=== PATIENT | male | born 1955 | race Caucasian/White ===

== ENCOUNTER 2017-07-16 19:39 | Inpatient (IN) | payer MEDICAID, OTHER ==
[~2017-07-16] VITALS: Ht 175.3 cm; Wt 81.2 kg
[2017-07-16] MEDS ORDERED: SODIUM CHLORIDE 0.9% 1,000 ML IVB ONE (20:12)
[2017-07-16] MEDS ORDERED: LORazepam 2MG/ML-1ML VIAL ONE (21:04)
[2017-07-16] MEDS ORDERED: LORazepam 2MG/ML-1ML VIAL IV ONE (21:15)
[2017-07-16 21:21] LABS: INR 1.11 (0.9-1.15); Prothrombin Time 12.1 sec (9.37-12.3)
[2017-07-16 21:23] LABS: Albumin 3.3 g/dL (3.4-5.0); BUN/Creatinine Ratio 21.4; Magnesium 2.1 mg/dL (1.6-2.6)
[2017-07-16 21:25] LABS: Bilirubin, Total 0.9 mg/dL (0.2-1.0); Lactic Acid w/Reflex 2.3 mmol/L (0.4-2.0); Total Protein 7.6 g/dL (6.4-8.2)
[2017-07-16] MEDS ORDERED: SODIUM CHLORIDE 0.9% 500 ML IV ONE (21:45)
[2017-07-16] MEDS ORDERED: SODIUM CHLORIDE 0.9% 1,000 ML IV ONE (21:45)
[2017-07-16 21:53] LABS: Urine Bacteria NONE SEEN /hpf (None Seen); Urine Blood TRACE /uL (Negative); Urine WBC 2 /hpf (0 - 3)
[2017-07-16 22:07] LABS: Basophils # (auto) 0 uL; Eosinophils # (auto) 0 uL; Monocytes # (auto) 0.9 uL; Neutrophils # (auto) 7.2 uL; Nucleated Red Blood Cells % 0.1 %; Red Blood Cells 2.72 10^6/uL (4.5-5.90); White Blood Cell 8.5 10^3/uL (4.4-10.8)
[2017-07-16 22:08] LABS: Basophils % (auto) 0.3 % (0.0-2.0); Hematocrit 26.8 % (41.0-53.0); Lymphocytes # (auto) 0.4 uL; Lymphocytes % (auto) 5.2 % (10.0-50.0); Mean Corpuscular Hemoglobin 33.1 pg (28.0-32.0); Mean Corpuscular Hgb Conc. 33.6 g/dL (32.0-36.0); Mean Corpuscular Volume 98.5 fL (80.0-100.0); Neutrophils % (auto) 84.5 % (37.0-80.0)
[2017-07-16 22:09] LABS: Red Cell Distribution Width 28.9 % (11.8-14.3)
[2017-07-16 22:11] LABS: Platelet Count (auto) 32 10^3/uL (140-450)
[2017-07-16] MEDS ORDERED: TEMAZEPAM 15 MG CAP PO PRN (22:30)
[2017-07-16] MEDS ORDERED: MORPHINE SULFATE 4 MG/ML SYR/VIAL IV PRN (22:30)
[2017-07-16] MEDS ORDERED: ACETAMINOPHEN 500 MG TAB PO PRN (22:30)
[2017-07-16] MEDS ORDERED: ONDANSETRON HCL 4 MG/2 ML VIAL IV PRN (22:30)
[2017-07-16] MEDS ORDERED: HYDROcodone-ACET 5/325MG TAB PO PRN (22:30)
[2017-07-16] MEDS ORDERED: LACTULOSE 20Gm/30ML SOLN PR ONE (23:00)
[2017-07-16] MEDS ORDERED: LACTULOSE 20Gm/30ML SOLN ONE (23:35)
[2017-07-17 00:55] VITALS: BP 121/79
[2017-07-17 05:00] VITALS: BP 132/63
[2017-07-17 05:48] LABS: Basophils # (auto) 0 uL; Eosinophils # (auto) 0 uL; Hemoglobin 9.6 g/dL (13.5-17.5); Mean Corpuscular Hgb Conc. 33.3 g/dL (32.0-36.0); Nucleated Red Blood Cells % 0.1 %; Platelet Count (auto) 25 10^3/uL (140-450)
[2017-07-17 05:52] LABS: Basophils % (auto) 0.1 % (0.0-2.0); Eosinophils % (auto) 0.1 % (0.0-7.0); Hematocrit 28.8 % (41.0-53.0); Lymphocytes # (auto) 0.6 uL; Lymphocytes % (auto) 8.4 % (10.0-50.0); Mean Corpuscular Hemoglobin 32.6 pg (28.0-32.0); Mean Corpuscular Volume 97.8 fL (80.0-100.0); Neutrophils # (auto) 5.3 uL; Neutrophils % (auto) 77.4 % (37.0-80.0); Red Blood Cells 2.94 10^6/uL (4.5-5.90); White Blood Cell 6.8 10^3/uL (4.4-10.8)
[2017-07-17 05:59] LABS: Red Cell Distribution Width 28.6 % (11.8-14.3)
[2017-07-17 06:13] LABS: Albumin 2.8 g/dL (3.4-5.0); Calcium 7.7 mg/dL (8.5-10.1); Potassium 4.5 mmol/L (3.5-5.1); Total Protein 5.8 g/dL (6.4-8.2)
[2017-07-17] MEDS ORDERED: HALOPERIDOL LACTATE 5 MG/ML INJ VIAL IM ONE (08:45)
[2017-07-17 09:00] VITALS: BP 148/85
[2017-07-17] MEDS ORDERED: HALOPERIDOL LACTATE 5 MG/ML INJ VIAL IM PRN (09:45)
[2017-07-17] MEDS ORDERED: LORazepam 2MG/ML-1ML VIAL IV PRN (11:00)
[2017-07-17] MEDS: D5W/SOD CHL 0.45%/KCL 20MEQ 1,000 ML IV SCH (11:47)
[2017-07-17 12:11] LABS: Albumin 2.5 g/dL (3.4-5.0); BUN/Creatinine Ratio 25.5; Bilirubin, Total 1.1 mg/dL (0.2-1.0); Calcium 7.9 mg/dL (8.5-10.1); Potassium 4.6 mmol/L (3.5-5.1); Total Protein 5.5 g/dL (6.4-8.2)
[2017-07-17 13:00] VITALS: BP 128/92
[2017-07-17 17:00] VITALS: BP 131/77
[2017-07-17] MEDS: LACTULOSE 20Gm/30ML SOLN PO SCH (18:21)
[2017-07-17 21:43] VITALS: BP 129/83
[2017-07-17] MEDS: RIFAXIMIN 550 MG TAB PO SCH (22:00)
[2017-07-18 04:45] VITALS: BP 147/98
[2017-07-18] MEDS: LACTULOSE 20Gm/30ML SOLN PO SCH ×4 (06:00→18:00)
[2017-07-18] MEDS: HYDROmorphone HCL 2 MG TAB PO PRN ×2 (06:08→15:53)
[2017-07-18] MEDS: D5W/SOD CHL 0.45%/KCL 20MEQ 1,000 ML IV SCH (06:15)
[2017-07-18 08:58] LABS: Basophils # (auto) 0 uL; Basophils % (auto) 0.1 % (0.0-2.0); Eosinophils # (auto) 0 uL; Hemoglobin 9.7 g/dL (13.5-17.5); Lymphocytes # (auto) 0.4 uL; Neutrophils # (auto) 3.4 uL
[2017-07-18 09:00] VITALS: BP 134/71
[2017-07-18 09:00] LABS: Lymphocytes % (auto) 9.9 % (10.0-50.0); Mean Corpuscular Hemoglobin 34.3 pg (28.0-32.0); Mean Corpuscular Hgb Conc. 34.8 g/dL (32.0-36.0); Mean Corpuscular Volume 98.7 fL (80.0-100.0); Monocytes # (auto) 0.7 uL; Monocytes % (auto) 16.1 % (0.0-12.0); Neutrophils % (auto) 73.9 % (37.0-80.0); Platelet Count (auto) 39 10^3/uL (140-450); Red Blood Cells 2.83 10^6/uL (4.5-5.90); White Blood Cell 4.5 10^3/uL (4.4-10.8)
[2017-07-18] MEDS: RIFAXIMIN 550 MG TAB PO SCH ×2 (10:36→21:36)
[2017-07-18 13:00] VITALS: BP 137/90
[2017-07-18 22:00] VITALS: BP 136/86
[2017-07-19] MEDS: LACTULOSE 20Gm/30ML SOLN PO SCH ×3 (00:01→12:10)
[2017-07-19] MEDS: D5W/SOD CHL 0.45%/KCL 20MEQ 1,000 ML IV SCH (01:56)
[2017-07-19] MEDS: HYDROmorphone HCL 2 MG TAB PO PRN ×2 (02:50→11:10)
[2017-07-19 05:00] VITALS: BP 141/82
[2017-07-19 06:33] LABS: Platelet Count (auto) 41 10^3/uL (140-450)
[2017-07-19 06:37] LABS: Hematocrit 29.2 % (41.0-53.0); Hemoglobin 9.8 g/dL (13.5-17.5); Mean Corpuscular Hemoglobin 33.8 pg (28.0-32.0); Mean Corpuscular Hgb Conc. 33.7 g/dL (32.0-36.0); Mean Corpuscular Volume 100.2 fL (80.0-100.0); Red Blood Cells 2.92 10^6/uL (4.5-5.90); White Blood Cell 3.5 10^3/uL (4.4-10.8)
[2017-07-19 06:46] LABS: Red Cell Distribution Width 29.8 % (11.8-14.3)
[2017-07-19 06:49] LABS: Basophils % (manual) 0 (0.0-2.0); Blast Cells 0; Eosinophils % (manual) 0 (0-7); Metamyelocytes % 0; Myelocytes % 0; Promyelocytes % 0; Reactive Lymphocytes 0
[2017-07-19 06:53] LABS: Albumin 2.5 g/dL (3.4-5.0); Potassium 4.6 mmol/L (3.5-5.1)
[2017-07-19 07:08] LABS: Bilirubin, Total 1.3 mg/dL (0.2-1.0); Total Protein 5.8 g/dL (6.4-8.2)
[2017-07-19 08:30] LABS: Band Neutrophils % (manual) 1; Lymphocytes % (manual) 22 (10.0-50.0); Monocytes % (manual) 13 (0-12)
[2017-07-19 08:51] VITALS: BP 143/89
[2017-07-19] MEDS: RIFAXIMIN 550 MG TAB PO SCH (12:10)
[2017-07-19 12:14] VITALS: BP 142/92
[2017-07-19 14:48] VITALS: BP 142/92
== END 2017-07-19 18:35 | disposition home or self-care (01) | DRG 279 ==
LOC: ER 19:39 → EDBD 19:39 → TELE-CENTR 19:40
PROVIDERS: ADMIT Nurse Practitioner Family; ATTEND Internal Medicine
DX: K72.90 Hepatic failure, unspecified without coma (principal); E43 Unspecified severe protein-calorie malnutrition; J90 Pleural effusion, not elsewhere classified; R18.8 Other ascites; D69.6 Thrombocytopenia, unspecified; C22.9 Malignant neoplasm of liver, not specified as primary or secondary; E87.1 Hypo-osmolality and hyponatremia; N18.3 Chronic kidney disease, stage 3 (moderate); N19 Unspecified kidney failure; R16.1 Splenomegaly, not elsewhere classified; K74.60 Unspecified cirrhosis of liver; I10 Essential (primary) hypertension; D64.9 Anemia, unspecified; K21.9 Gastro-esophageal reflux disease without esophagitis; J98.11 Atelectasis; Z85.05 Personal history of malignant neoplasm of liver; Z85.028 Personal history of other malignant neoplasm of stomach; Z68.26 Body mass index [BMI] 26.0-26.9, adult; I65.23 Occlusion and stenosis of bilateral carotid arteries
CPT/HCPCS: 36415; 51702; 70450; 71045; 74176; 76705; 80053; 81001; 82140; 82150; 82550; 83605; 83690; 83735; 83880; 85007; 85025; 85027; 85610; 85730; 87040; 93005; 94761; 96361; 96374; J1642; J2405